=== PATIENT | male | born 1985 | race Caucasian/White ===

== ENCOUNTER 2018-01-15 01:08 | Observation (INO) | payer OTHER ==
[~2018-01-15] VITALS: Ht 172.7 cm; Wt 98.4 kg
[~2018-01-15 01:08] MED LIST: ALBU90OI INH; Monodox100 MG PO; PRED10 PO; Prednisone20 MG PO; SPACE CHAMBER1 EACH INH; Ventolin/Prove6.7 GM INH; Zofran Odt4 MG SL
[2018-01-15 01:55] LABS: PCO2 Arterial 41.4 mmHg (35-45); PO2 Arterial 66.8 mmHg (80-100); pH Blood Arterial 7.43 (7.35-7.45)
[2018-01-15 02:15] LABS: BASOPHILS ABSOLUTE AUTO 0.11 K/mm3 (0.00-0.23); BASOPHILS PERCENT AUTO 1 % (0-2); EOSINOPHILS ABSOLUTE AUTO 1.09 K/mm3 (0.00-0.68); EOSINOPHILS PERCENT AUTO 9 % (0-6); Hematocrit 45.3 % (37.0-53.0); Hemoglobin 15.6 g/dL (13.5-17.5); IMMATURE GRAN ABSOLUTE AUTO 0.08 K/mm3 (0.00-0.10); IMMATURE GRAN PERCENT AUTO 1 % (0-1); LYMPHOCYTES ABSOLUTE AUTO 3.33 K/mm3 (0.84-5.20); LYMPHOCYTES PERCENT AUTO 28 % (21-46); MONOCYTES ABSOLUTE AUTO 0.94 K/mm3 (0.16-1.47); MONOCYTES PERCENT AUTO 8 % (4-13); Mean Corpuscular HGB 29.2 pg (26.0-34.0); Mean Corpuscular HGB Conc 34.4 g/dL (31.5-36.5); Mean Corpuscular Volume 85 fL (80-100); Mean Platelet Volume 10.1 fL (9.1-12.4); NEUTROPHILS PERCENT AUTO 54 % (41-73); Platelet Count 257 K/mm3 (150-400); RDW Coefficient Variation 12.9 % (11.7-14.2); RDW Standard Deviation 38.9 fL (35.1-46.3); Red Blood Cell Count 5.34 M/mm3 (4.30-5.90); White Blood Cell Count 12.05 K/mm3 (4.00-11.30)
[2018-01-15 02:18] LABS: Alanine Aminotransfer (ALT/SGP 73 U/L (12-78); Albumin, Blood 3.5 g/dL (3.4-5.0); Albumin/Globulin Ratio 0.9 (0.8-1.8); Alk Phos 132 U/L (50-136); Anion Gap 8 mmol/L (6-16); Aspartate Aminotrans (AST/SGOT 28 U/L (12-37); Blood Urea Nitrogen 13 mg/dL (8-24); CO2, Blood 29 mmol/L (21-32); Calcium, Blood 9.2 mg/dL (8.5-10.1); Chloride, Blood 101 mmol/L (98-108); Creatinine, Blood 1.08 mg/dL (0.60-1.20); Globulin, Blood 3.9 g/dL (2.2-4.0); Glomerular Filtration Rate >60 (60-); Glucose, Blood 345 mg/dL (70-99); Magnesium, Blood 1.9 mg/dL (1.6-2.4); Sodium, Blood 138 mmol/L (136-145); Total Protein, Blood 7.4 g/dL (6.4-8.2)
[2018-01-15] MEDS ORDERED: DULERA 100 MCG/13 GM INH (11:18)
[2018-01-15] MEDS ORDERED: PRED20 PO (11:23)
== END 2018-01-15 11:30 | disposition home or self-care (01) ==
LOC: ER 01:08 → MEDS 01:09
PROVIDERS: Emergency Medicine
DX: J96.01 Acute respiratory failure with hypoxia (principal); J45.901 Unspecified asthma with (acute) exacerbation; R00.0 Tachycardia, unspecified; Z87.891 Personal history of nicotine dependence; Z82.5 Family history of asthma and other chronic lower respiratory diseases; Z79.899 Other long term (current) drug therapy
CPT/HCPCS: 36600; 71046; 80053; 82803; 83735; 85025; 93005; 93010; 94644; 96365; 96375; 96376; 99285; G0378; J2930; J3475

== ENCOUNTER → 2019-03-14 | Outpatient (CLI) | payer SELFPAY ==
[~2019-03-14] MED LIST changes: +DULERA 100 MCG/13 GM INH; +PRED20 PO
== END | disposition home or self-care (01) ==
LOC: LAB 19:26 → LAB SHORT 19:26
DX: R73.9 Hyperglycemia, unspecified (principal)
CPT/HCPCS: 83036